=== PATIENT | male | born 1945 | race Caucasian/White ===

== ENCOUNTER 2017-11-05 19:54 | Emergency (ER) | payer BC, MEDICARE ==
[2017-11-05] MEDS ORDERED: Aspirin 81 MG Tab.Chew PO ONE (20:10)
[2017-11-05] MEDS ORDERED: Ketorolac 60 MG/2 ML SDV IM ONE (20:26)
[2017-11-05 21:15] LABS: CHLORIDE,CL 102 mmol/L (98-107); SODIUM,NA 139 mmol/L (136-145)
[2017-11-05 21:43] VITALS: BP 149/81
[2017-11-05] MEDS ORDERED: Take Home: Doxycycline 100 MG Tab, 4 Tab Pack PO ONE (21:46)
--- NOTE | 2017-11-05 22:00 | EDM.PDOC ---
ED HPI GENERAL MEDICAL PROBLEM - General Chief Complaint: Chest Pain Stated Complaint: Left chest pain, shoulder pain Time Seen by Provider: 11/05/17 20:10 Source of Information: Reports: Patient History Limitations: Reports: No Limitations - History of Present Illness INITIAL COMMENTS - FREE TEXT/NARRATIVE: Pt. presents to ER with 3 day history of respirophasic chest pain. Pt. states that he his also experiencing respirophasic back pain on the L side as well Onset Date: 11/02/17 Location: Reports: Chest, Back Quality: Reports: Ache, Throbbing Improves with: Reports: Rest Worsens with: Reports: Breathing, Movement Treatments [employer]: Reports: Acetaminophen Left chest Pain Score (Numeric/FACES): 5 - Related Data Allergies Allergy/AdvReac Type Severity Reaction Status Date / Time cefaclor [From Ceclor] Allergy Rash Verified 11/05/17 20:39 lisinopril Allergy Cough Verified 11/05/17 20:40 nifedipine Allergy Swelling Verified 11/05/17 20:40 Sulfa (Sulfonamide Allergy Rash Verified 11/05/17 20:39 Antibiotics) Home Meds: Home Meds Albuterol [Proair HFA] 2 puff INH Q4H PRN 06/03/15 [History] Losartan [Cozaar] 100 mg PO DAILY 06/03/15 [History] Aspirin 81 mg PO DAILY 11/05/17 [History] Chlorthalidone 25 mg PO DAILY 11/05/17 [History] Isosorbide Mononitrate [Isosorbide Mononitrate ER] 30 mg PO DAILY 11/05/17 [ History] Tiotropium [Spiriva HandiHaler] 1 inh INH DAILY 11/05/17 [History] Past Medical History Other HEENT History: bilateral hearing aids Cardiovascular History: Reports: High Cholesterol, Hypertension Other Musculoskeletal History: Back/Neck surgery Apr 2014 Other Dermatologic History: bilateral hives/itching upon admission Social & Family History - Tobacco Use Smoking Status *Q: Former Smoker (quit 3 years ago) - Recreational Drug Use Recreational Drug Use: No ED ROS GENERAL - Review of Systems Review Of Systems: See Below Constitutional: Reports: Chills, Fatigue HEENT: Reports: No Symptoms Respiratory: Reports: Pleuritic Chest Pain Cardiovascular: Reports: No Symptoms Endocrine: Reports: No Symptoms GI/Abdominal: Reports: No Symptoms : Reports: No Symptoms Musculoskeletal: Reports: Back Pain Skin: Reports: No Symptoms Neurological: Reports: No Symptoms Psychiatric: Reports: No Symptoms Hematologic/Lymphatic: Reports: No Symptoms Immunologic: Reports: No Symptoms ED EXAM, GENERAL - Physical Exam Exam: See Below Exam Limited By: No Limitations General Appearance: Alert, WD/WN, No Apparent Distress Ears: Normal External Exam, Normal Canal, Hearing Grossly Normal, Normal TMs Ear Exam: Bilateral Ear: Auricle Normal, Canal Normal, TM normal Nose: Normal Inspection, Normal Mucosa, No Blood Throat/Mouth: Normal Inspection, Normal Lips, Normal Teeth, Normal Gums, Normal Oropharynx, Normal Voice, No Airway Compromise Head: Atraumatic, Normocephalic Neck: Normal Inspection, Supple, Non-Tender, Full Range of Motion Respiratory/Chest: No Accessory Muscle Use, Decreased Breath Sounds, Other (L upper back pain, inferior to scapula) Cardiovascular: Normal Peripheral Pulses, Regular Rate, Rhythm, No Edema, No Gallop, No JVD, No Murmur, No Rub GI/Abdominal: Normal Bowel Sounds, Soft, Non-Tender, No Organomegaly, No Distention, No Abnormal Bruit, No Mass (Male) Exam: Deferred Rectal (Males) Exam: Deferred Back Exam: Other (see above) Extremities: Normal Inspection, Normal Range of Motion, Non-Tender, Normal Capillary Refill, No Pedal Edema Neurological: Alert, Oriented, CN II-XII Intact, Normal Cognition, Normal Gait, Normal Reflexes, No Motor/Sensory Deficits Psychiatric: Normal Affect, Normal Mood Skin Exam: Warm, Dry, Intact, Normal Color, No Rash Lymphatic: No Adenopathy EKG INTERPRETATION EKG Date: 11/05/17 Rhythm: NSR [place]: Normal P-Wave: Present QRS: Normal ST-T: Normal QT: Normal Course - Vital Signs Last Recorded V/S: Last Vital Signs Temp 37.0 C 11/05/17 19:55 Pulse 69 11/05/17 21:35 Resp 16 11/05/17 21:35 BP 149/81 H 11/05/17 21:35 Pulse Ox 97 11/05/17 19:55 - Orders/Labs/Meds Orders: Active Orders 24 hr Category Date Time Status EKG Documentation Completion [RC] STAT Care 11/05/17 20:26 Active Chest 2V [CR] Stat Exams 11/05/17 20:26 Taken Labs: Laboratory Tests 11/05/17 11/05/17 Range/Units 20:45 20:45 WBC 11.4 H (4.0-10.0) x10^3/uL RBC 4.09 L (4.5-6.0) x10^6/uL Hgb 13.3 L (14.0-18.0) g/dL Hct 39.1 L (40.0-52.0) % MCV 95.6 H (78.0-93.0) fL MCH 32.5 H (26.0-32.0) pg MCHC 34.0 (32.0-36.0) g/dL RDW Coeff of Car 12.8 (10.0-15.0) % Plt Count 285 (130-400) x10^3/uL Neut % (Auto) 61.1 (50.0-80.0) % Lymph % (Auto) 24.4 L (25.0-50.0) % [place] % (Auto) 12.6 H (2.0-11.0) % Eos % (Auto) 1.7 (0.0-4.0) % Baso % (Auto) 0.2 (0.2-1.2) % Sodium 139 (136-145) mmol/L Potassium 3.3 L (3.5-5.1) mmol/L Chloride 102 (98-107) mmol/L Carbon Dioxide 27 (21-32) mmol/L BUN 23 H (7-18) mg/dL Creatinine 1.3 (0.70-1.30) mg/dL Est Cr Clr Drug Dosing TNP Estimated GFR (MDRD) 54 Glucose 95 (74-106) mg/dL Calcium 9.1 (8.5-10.1) mg/dL Corrected Calcium 9.42 (8.5-10.1) mg/dL Total Bilirubin 0.4 (0.2-1.0) mg/dL AST 12 L (15-37) U/L ALT 15 L (16-63) U/L Alkaline Phosphatase 76 (46-116) U/L Troponin I < 0.017 (<=0.056) ng/mL Total Protein 7.2 (6.4-8.2) g/dL Albumin 3.6 (3.4-5.0) g/dL Globulin 3.6 Albumin/Globulin Ratio 1.00 Meds: Medications Discontinued Medications Generic Name Dose Route Start Last Admin Trade Name Liliana PRN Reason Stop Dose Admin Aspirin 324 mg 11/05/17 20:10 11/05/17 20:10 Aspirin PO 11/05/17 20:11 324 mg ONETIME ONE Administration Doxycycline Monohydrate 1 packet 11/05/17 21:46 11/05/17 21:51 Take Home: Doxycycline 100 Mg, 4 Tab Pack PO 11/05/17 21:47 1 packet ONETIME ONE Administration Ketorolac Tromethamine 60 mg 11/05/17 20:26 11/05/17 20:51 Toradol IM 11/05/17 20:27 60 mg ONETIME ONE Administration - Radiology Interpretation Free Text/Narrative:: atelectasis vs. infiltrate in L base and R middle lobe Departure - Departure Time of Disposition: 21:35 Disposition: Home, Self-Care 01 Clinical Impression: Community acquired pneumonia - Discharge Information Instructions: Community-Acquired Pneumonia, Adult, [id number] Referrals: Kaitlin Nieves MD [Primary Care Provider] - Forms: ED Department Discharge Additional Instructions: Doxycycline 100mg twice daily for 10 days Drink plenty of fluids Tylenol for fever and discomfort Return to ER if you have increased work of breathing, shortness of breath, or feel like passing out Follow-up in clinic in 10-14 days - My Orders Last 24 Hours: My Active Orders 11/05/17 20:26 EKG Documentation Completion [RC] STAT Chest 2V [CR] Stat - Assessment/Plan Last 24 Hours: My Active Orders 11/05/17 20:26 EKG Documentation Completion [RC] STAT Chest 2V [CR] Stat
== END 2017-11-05 21:55 | disposition home or self-care (01) ==
LOC: VM.ED 19:54
DX: J18.9 Pneumonia, unspecified organism (principal); I10 Essential (primary) hypertension; E78.00 Pure hypercholesterolemia, unspecified; Z87.891 Personal history of nicotine dependence; Z79.82 Long term (current) use of aspirin; Z79.899 Other long term (current) drug therapy; Z88.1 Allergy status to other antibiotic agents; Z88.2 Allergy status to sulfonamides; Z88.8 Allergy status to other drugs, medicaments and biological substances
CPT/HCPCS: 36415; 71046; 80053; 84484; 85025; 93005; 96372; 99285; A9270-GY; J1885

== ENCOUNTER 2024-01-27 12:45 | Emergency (ER) | payer OTHER, MEDICARE, BC ==
[2024-01-27 13:05] LABS: BASOPHILS PERCENT AUTO 0.4 % (0.2-1.2); EOSINOPHILS ABSOLUTE AUTO 0.1 x10^3/uL (0.0-0.5); EOSINOPHILS PERCENT AUTO 1.2 % (0.0-4.0); HEMATOCRIT 40.3 % (40.0-52.0); HEMOGLOBIN 14.3 g/dL (14.0-18.0); IMMATURE GRAN ABSOLUTE AUTO 0.06 x10^3/uL (0.00-0.07); LYMPHOCYTES ABSOLUTE AUTO 2.4 x10^3/uL (1.0-4.8); LYMPHOCYTES PERCENT AUTO 22.4 % (25.0-50.0); MEAN CORPUSCULAR HEMOGLOBIN 33.5 pg (26.0-32.0); MEAN CORPUSCULAR HGB CONC 35.5 g/dL (32.0-36.0); MEAN CORPUSCULAR VOLUME 94.4 fL (78.0-93.0); MONOCYTES PERCENT AUTO 9.1 % (2.0-11.0); NEUTROPHILS PERCENT AUTO 66.3 % (50.0-80.0); PLATELET COUNT,PLT 299 x10^3/uL (130-400); RED BLOOD CELL COUNT 4.27 x10^6/uL (4.5-6.0); WHITE BLOOD CELL COUNT,WBC 10.6 x10^3/uL (4.0-10.0)
[2024-01-27 13:19] LABS: A/G RATIO 1.15; ALANINE AMINOTRANSFERASE,ALT 56 U/L (16-63); ALBUMIN 3.9 g/dL (3.4-5.0); ALKALINE PHOSPHATASE 67 U/L (46-116); ANION GAP 17.3 mmol/L (5-15); ASPARTATE AMNIOTRANSFERASE,AST 54 U/L (15-37); BILIRUBIN TOTAL 0.4 mg/dL (0.2-1.0); BLOOD UREA NITROGEN,BUN 32 mg/dL (7-18); CALCIUM 9.3 mg/dL (8.5-10.1); CARBON DIOXIDE,CO2 25 mmol/L (21-32); CHLORIDE,CL 104 mmol/L (98-107); CREATININE 1.7 mg/dL (0.70-1.30); GLUCOSE RANDOM 121 mg/dL (70-99); POTASSIUM,K 4.3 mmol/L (3.5-5.1); PROTEIN TOTAL,TP 7.3 g/dL (6.4-8.2); SODIUM,NA 142 mmol/L (136-145)
[2024-01-27 13:20] LABS: ESTIMATED GFR 41 mL/min (>=60)
[2024-01-27] MEDS: Morphine 4 MG/ML Syringe IVPUSH ONE (13:52)
[2024-01-27 13:58] VITALS: BP 160/92; PULSE 93
== END 2024-01-27 14:18 | disposition short-term general hospital (02) ==
LOC: VM.ED 12:45
DX: S27.0XXA Traumatic pneumothorax, initial encounter (principal); S22.41XA Multiple fractures of ribs, right side, initial encounter for closed fracture; T79.7XXA Traumatic subcutaneous emphysema, initial encounter; I10 Essential (primary) hypertension; E78.00 Pure hypercholesterolemia, unspecified; J44.9 Chronic obstructive pulmonary disease, unspecified; Z88.1 Allergy status to other antibiotic agents; Z88.0 Allergy status to penicillin; Z88.8 Allergy status to other drugs, medicaments and biological substances; Z79.51 Long term (current) use of inhaled steroids; Z79.82 Long term (current) use of aspirin; Z79.899 Other long term (current) drug therapy; Z87.891 Personal history of nicotine dependence; W17.89XA Other fall from one level to another, initial encounter
CPT/HCPCS: 71045; 80053; 85025; 96374; 99284; 99285-25; J2270

== ENCOUNTER 2025-07-03 09:01 | Emergency (ER) | payer BC, MEDICARE, OTHER ==
[2025-07-03 10:44] VITALS: BP 149/83; PULSE 77
== END 2025-07-03 10:25 | disposition home or self-care (01) ==
LOC: VM.ED 09:01
DX: J44.1 Chronic obstructive pulmonary disease with (acute) exacerbation (principal); I10 Essential (primary) hypertension; Z88.2 Allergy status to sulfonamides; Z88.8 Allergy status to other drugs, medicaments and biological substances; Z79.82 Long term (current) use of aspirin; Z79.899 Other long term (current) drug therapy
CPT/HCPCS: 71045; 99285; J7620; 99284; A9270-GY